=== PATIENT | male | born 1955 | race African-American/Black ===

== ENCOUNTER → 2018-02-27 | Outpatient (CLI) | payer OTHER ==
[~2018-02-27] MED LIST: CALCIUM CITRAT1 EAC2 PO; COZAAR 50 MG TA50 M2 PO; LIPITOR 20 MG T20 M1 PO; METFORMIN HCL500 MG PO; NAPROSYN500 MG PO; NORVASC5 MG PO
== END ==
LOC: CAT 06:17
DX: Z13.6 Encounter for screening for cardiovascular disorders (principal)

== ENCOUNTER → 2018-02-27 | Outpatient (CLI) | payer OTHER ==
--- NOTE | ~2018-02-27 | 2DMMODE ---
[facility] [employer] [address] 2 D/M-MODE ECHOCARDIOGRAM Name: GUI MCNEIL Room #: REG [facility] [id number] Admission: 02/27/18 Attend Phys: Marek Garcia MD Discharge: Date of : 55 Date of Service: 02/27/18 1114 Report #: [id number] THIS REPORT FOR: //name// APPROVED REPORT Study performed: 02/27/2018 10:04:23 EXAM: Comprehensive 2D, Doppler, and color-flow Echocardiogram Patient Location: Out-Patient Status: routine BSA: 2.24 HR: 68 bpm BP: 140/84 mmHg Rhythm: NSR Indications Chest Pain Hx: HTN 2D Dimensions RVDd: 36.54 mm LVEF(%): 55.61 (>50%) IVSd: 14.39 (7-11mm) LVOT Diam: 21.76 (18-24mm) LVDd: 34.10 mm PWd: 12.04 (7-11mm) Ascending Ao: 37.54 (22-36mm) LVDs: 24.49 (25-40mm) Aortic Root: 35.67 mm Herr's LVEF: 55.61 % Volumes Left Atrial Volume (Systole) Single Plane 4CH: 24.51 mL Single Plane 2CH: 56.25 mL LA ESV Index: 18.00 mL/m2 Aortic Valve AoV Peak Abhishek.: 1.31 m/s AO Peak Gr.: 6.84 mmHg LVOT Max P.51 mmHg LVOT Max V: 1.06 m/s CHRISSIE Vmax: 3.02 cm2 Mitral Valve E/A Ratio: 0.9 MV Decel. Time: 249.54 ms MV E Max Abhishek.: 0.63 m/s MV A Abhishek.: 0.72 m/s [facility] [employer] [place] [address] 2 D/M-MODE ECHOCARDIOGRAM Name: GUI MCNEIL Room #: REG [facility]#: [id number] Admission: 02/27/18 Attend Phys: Marek Garcia MD Discharge: Date of : 55 Date of Service: 02/27/18 1114 Report #: [id number] PHT: 72.37 ms IVRT: 101.50 ms Pulmonary Valve PV Peak Abhishek.: 0.73 m/s PV Peak Gr.: 2.14 mmHg Pulmonary Vein P Vein S: 0.51 m/s P Vein A: 0.33 m/s P Vein D: 0.34 m/s P Vein A Dur.: 101.5 msec P Vein S/D Ratio: 1.50 Left Ventricle The left ventricle is normal size. Mild concentric left ventricular hypertrophy. The left ventricular systolic function is normal. LVEF is 55%. Grade I - abnormal relaxation pattern. Right Ventricle The right ventricle is normal size. The right ventricular systolic function is normal. Atria The left atrium size is normal. The right atrium size is normal. Aortic Valve The Aortic valve is mildly sclerotic. No aortic regurgitation is present. There is no aortic valvular stenosis. Mitral Valve The mitral valve is normal in structure. There is no mitral valve regurgitation noted. No evidence of mitral valve stenosis. Tricuspid Valve The tricuspid valve is normal in structure. There is no tricuspid valve regurgitation noted. Unable to assess PA pressure. Pulmonic Valve The pulmonary valve is normal in structure. Trace pulmonic regurgitation. Great Vessels The aortic root is normal in size. The ascending aorta is borderline dilated. <Conclusion> The left ventricle is normal size. [address] [address] 2 D/M-MODE ECHOCARDIOGRAM Name: GUI MCNEIL Room #: REG [facility]#: [id number] Admission: 02/27/18 Attend Phys: Marek Garcia MD Discharge: Date of : 55 Date of Service: 02/27/18 1114 Report #: [id number] Mild concentric left ventricular hypertrophy. The left ventricular systolic function is normal. Grade I - abnormal relaxation pattern. The right ventricle is normal size. The left atrium size is normal. There is no aortic valvular stenosis. There is no mitral valve regurgitation noted. <ELECTRONICALLY SIGNED> By: Marek Garcia MD 02/27/18 1114 1114 111 Marek Garcia MD /DAMIEN
== END ==
LOC: CV 09:29
DX: I35.8 Other nonrheumatic aortic valve disorders (principal); I10 Essential (primary) hypertension; I51.7 Cardiomegaly

== ENCOUNTER → 2018-03-01 | Outpatient (CLI) | payer OTHER | LOC: NUC | DX: I10 Essential (primary) hypertension (principal); E78.5 Hyperlipidemia, unspecified ==